=== PATIENT | male | born 1945 | race Caucasian/White ===

== ENCOUNTER → 2017-11-23 | Outpatient (CLI) | payer MEDICARE ==
[~2017-11-23] MED LIST: ASPI-867 PO; CLOP75TA16 PO; LOSA50TA20 PO; PANT40TA4 PO; SIMV20TA6 PO; TADA5TAB PO; ZET10 PO
== END | disposition home or self-care (01) ==
LOC: US 09:24
PROVIDERS: ATTEND Internal Medicine Gastroenterology
DX: K21.9 Gastro-esophageal reflux disease without esophagitis (principal); D64.89 Other specified anemias; N28.1 Cyst of kidney, acquired; K57.90 Diverticulosis of intestine, part unspecified, without perforation or abscess without bleeding
CPT/HCPCS: 76700